=== PATIENT | female | born 2000 | race African-American/Black ===

== ENCOUNTER 2024-02-18 04:03 | Emergency (ER) | payer SELFPAY ==
[~2024-02-18] VITALS: Ht 177.8 cm; Wt 56.7 kg
[2024-02-18 05:03] LABS: APPEARANCE,URINE CLEAR (CLEAR); BASOPHILS % (AUTO) 0.5 % (0.0-2.0); BILIRUBIN,URINE NEGATIVE (NEGATIVE); BLOOD, URINE NEGATIVE Ery/uL (NEGATIVE); COLOR,URINE YELLOW (YELLOW); EOSINOPHILS # (AUTO) 0.1 K/uL (0.0-0.7); EOSINOPHILS % (AUTO) 2.3 % (0.0-6.0); HEMATOCRIT 42 % (33-45); HEMOGLOBIN 14.1 g/dL (11.5-14.8); KETONES,URINE 2+ mg/dL (NEGATIVE); LEUKOCYTE ESTERASE ,URINE 1+ (NEGATIVE); LYMPHOCYTES # (AUTO) 1.6 K/uL (0.8-4.8); LYMPHOCYTES % (AUTO) 33.7 % (20.0-44.0); MEAN CORPUSCULAR HEMOGLOBIN 33 PG (26.0-33.0); MEAN CORPUSCULAR HGB CONC 34 g/dl (31.0-36.0); MEAN CORPUSCULAR VOLUME 99 fL (82-100); MONOCYTES # (AUTO) 0.7 K/uL (0.1-1.30); MONOCYTES % (AUTO) 14.8 % (2.0-12.0); NEUTROPHILS # (AUTO) 2.4 K/uL (1.8-8.9); NEUTROPHILS % (AUTO) 48.7 % (43.0-81.0); NITRITE, URINE NEGATIVE (NEGATIVE); PH,URINE 5.5 (5.0-8.0); PLATELET COUNT (AUTO) 282 K/uL (150-450); PROTEIN,URINE NEGATIVE (NEGATIVE); RED BLOOD CELL COUNT(AUTO) 4.25 MIL/uL (4.0-5.2); RED CELL DISTRIBUTION WIDTH 14.1 % (11.5-15.0); UGLUCOSE NEGATIVE (NEGATIVE); UROBILINOGEN,URINE 0.2 EU/dL (0.2); WHITE BLOOD COUNT (AUTO) 4.8 K/uL (4.3-11.0)
[2024-02-18 05:05] LABS: ADD URINE CULTURE YES; BACTERIA,URINE Few /HPF (None Seen); RBC,URINE 0-2 /HPF (0-2); SQUAMOUS EPITHELIAL CELL,UR Rare /HPF (None Seen)
[2024-02-18 05:06] LABS: PREGNANCY TEST URINE QUAL NEGATIVE (NEGATIVE)
[2024-02-18 05:18] LABS: CALCIUM, SERUM 9.2 mg/dL (8.5-10.1); CARBON DIOXIDE 25 mmol/L (21-32); CHLORIDE 99 mmol/L (98-107); GLUCOSE 85 mg/dL (74-106); POTASSIUM 3.3 mmol/L (3.5-5.1); SODIUM SERUM 136 mmol/L (136-145); UREA NITROGEN, BLOOD 14 mg/dL (7-18)
[2024-02-18 05:23] LABS: BARBITURATE, URINE NEGATIVE (NEGATIVE); BENZODIAZEPINE, URINE NEGATIVE (NEGATIVE); CANNABINOID, URINE NEGATIVE (NEGATIVE); COCCAINE, URINE NEGATIVE (NEGATIVE); OPIATE, URINE NEGATIVE (NEGATIVE); PHENCYCLIDINE SCREEN,URINE NEGATIVE (NEGATIVE)
[2024-02-18 05:25] LABS: AMPHETAMINE, URINE POSITIVE (NEGATIVE)
[2024-02-18 05:31] LABS: ALANINE AMINOTRANSFERASE 16 U/L (12-78); ALBUMIN 4.4 g/dL (3.4-5.0); ALCOHOL, BLOOD < 3 mg/dL (0-10); ALKALINE PHOSPHATASE 80 U/L (46-116); ASPARTATE AMINOTRANSFERASE 20 U/L (15-37); BILIRUBIN,TOTAL 0.8 mg/dL (0.2-1.0); NT-PRO BNP 31 pg/mL (0-125); TOTAL PROTEIN, SERUM 8.6 g/dL (6.4-8.2)
[2024-02-18] MEDS ORDERED: LORAZEPAM INJ 2 MG/ML VIAL ONE ×2 (05:37→06:01)
[2024-02-18] MEDS: IV NS 0.9% 1,000 ML IV ONE (05:37)
[2024-02-18] MEDS: LORAZEPAM INJ 2 MG/ML VIAL IV ONE ×2 (05:44→06:14)
[2024-02-18] MEDS ORDERED: POTASSIUM CHLORIDE 20 MEQ TAB.PRT.SR PO ONE (05:54)
[2024-02-18] MEDS: POTASSIUM CHLORIDE 20 MEQ TAB.PRT.SR PO ONE (05:58)
[2024-02-18] MEDS ORDERED: hydrOXYzine 10 MG TABLET ONE (06:00)
[2024-02-18] MEDS: hydrOXYzine HCL SYRUP 10 MG/5 ML UDC PO STA (06:14)
[2024-02-18 06:50] VITALS: BP 84/83; TEMP 98; O2SAT 98
== END 2024-02-18 06:58 | disposition home or self-care (01) ==
LOC: ER 04:07
DX: F41.9 Anxiety disorder, unspecified (principal); R94.31 Abnormal electrocardiogram [ECG] [EKG]
CPT/HCPCS: 99285; 96374; 96361; 93005 ×2; 71045; 96376; 85025; 87086; 84703; 81001; 36415; 80053; 84484; 83880; 80320; 80307; J2060 ×2; Q0177 ×2; J7030; G0480

== ENCOUNTER 2024-12-04 23:47 | Emergency (ER) | payer OTHER ==
[~2024-12-04] VITALS: Ht 177.8 cm; Wt 59.0 kg
[2024-12-05] MEDS ORDERED: hydrOXYzine 10 MG TABLET ONE (01:02)
[2024-12-05] MEDS ORDERED: ACETAMINOPHEN 325 MG TABLET ONE (01:02)
[2024-12-05] MEDS: ACETAMINOPHEN 325 MG TABLET PO ONE (01:14)
[2024-12-05] MEDS: hydrOXYzine 10 MG TABLET PO ONE (01:14)
[2024-12-05 01:35] VITALS: BP 132/90; TEMP 98.3; O2SAT 98
== END 2024-12-05 01:36 | disposition home or self-care (01) ==
LOC: ER 23:51
DX: F41.1 Generalized anxiety disorder (principal); B97.89 Other viral agents as the cause of diseases classified elsewhere; J06.9 Acute upper respiratory infection, unspecified; R07.89 Other chest pain; I51.7 Cardiomegaly
CPT/HCPCS: 99283; 71045; 93005; Q0177